=== PATIENT | female | born 1995 | race Caucasian/White ===

== ENCOUNTER 2018-04-28 12:53 | Emergency (ER) | payer BC ==
[2018-04-28 13:56] VITALS: BP 125/82
--- NOTE | 2018-04-28 14:01 | UC ---
Respiratory Complaint HPI - HPI Summary HPI Summary: 22 year old female presents with onset of mild nasal congestion approximately 2 weeks ago. States over past week has had increased congestion with sinus pressure then 2 days ago developed a non-productive cough. States has not taken anything for symptoms. Denies fever, chills, ear pain, sore throat, chest pain, or shortness of breath. - History of Current Complaint Chief Complaint: UCRespiratory Stated Complaint: COUGH Time Seen by Provider: 04/28/18 13:41 Hx Obtained From: Patient Hx Last Menstrual Period: 04/25/18 Pain Intensity: 2 - Allergies/Home Medications Allergies/Adverse Reactions: Allergies Allergy/AdvReac Type Severity Reaction Status Date / Time No Known Allergies Allergy Verified 04/28/18 13:32 Home Medications: Home Medications Control 1 tab PO DAILY 04/28/18 [History Confirmed 04/28/18] Dm/PE/Acetaminophen/Doxylamine [Vicks Nyquil Severe Cold-Flu] 1 each PO ONCE PRN 04/28/18 [History Confirmed 04/28/18] PMH/Surg Hx/FS Hx/Imm Hx Previously Healthy: Yes - Denies significant PMH - Surgical History Surgical History: Yes Surgery Procedure, Year, and Place: T&A - Family History Known Family History: Positive: Non-Contributory - Social History Occupation: Employed Full-time Lives: With Family Alcohol Use: Weekly Substance Use Type: None Smoking Status (MU): Never Smoked Tobacco Review of Systems All Other Systems Reviewed And Are Negative: Yes Constitutional: Negative: Fever, Chills Skin: Negative: Rash Eyes: Negative: Drainage, Eye Redness ENT: Positive: Nasal Discharge, Sinus Congestion, Sinus Pain/Tenderness. Negative: Sore Throat, Ear Ache Respiratory: Positive: Cough. Negative: Shortness Of Breath Cardiovascular: Negative: Palpitations, Chest Pain Gastrointestinal: Negative: Abdominal Pain, Vomiting, Diarrhea, Nausea Genitourinary: Positive: Negative Musculoskeletal: Positive: Negative Neurological: Positive: Negative Is Patient Immunocompromised?: No Physical Exam - Summary Physical Exam Summary: GENERAL APPEARANCE: Well developed, well nourished, alert and cooperative, and appears to be in no acute distress. EYES: Conjunctiva clear. No drainage. Vision is grossly intact. EARS: External auditory canals and tympanic membranes clear, hearing grossly intact. NOSE: Moderate nasal congestion with mucosal erythema and edema. THROAT: Mild pharyngeal erythema with post-nasal drip. Surgically absent tonsils. Uvula midline. Oral cavity normal. Teeth and gingiva in good general condition. NECK: Neck supple, non-tender without lymphadenopathy. CARDIAC: Normal S1 and S2. No S3, S4 or murmurs. Rhythm is regular. There is no peripheral edema, cyanosis or pallor. Extremities are warm and well perfused. Capillary refill is less than 2 seconds. Peripheral pulses intact. LUNGS: Clear to auscultation without rales, rhonchi, wheezing or diminished breath sounds. No cough observed. ABDOMEN: Positive bowel sounds. Soft, nondistended, nontender. No guarding or rebound. No masses or hepatosplenomegally. MUSKULOSKELETAL: ROM intact to all extremities. No joint erythema or tenderness. Normal muscular development. Normal gait. SKIN: Skin normal color, texture and turgor with no lesions or eruptions. Triage Information Reviewed: Yes Vital Signs: Initial Vital Signs Temp 99.2 F 04/28/18 13:26 Pulse 99 04/28/18 13:26 Resp 18 04/28/18 13:26 BP 125/82 04/28/18 13:26 Pulse Ox 100 04/28/18 13:26 Vital Signs Reviewed: Yes Respiratory Course/Dx - Course Course Of Treatment: 22 year old female presents with onset of mild nasal congestion approximately 2 weeks ago. States over past week has had increased congestion with sinus pressure then 2 days ago developed a non-productive cough. States has not taken anything for symptoms. Denies fever, chills, ear pain, sore throat, chest pain, or shortness of breath. Afebrile. VSS. Exam reveals a young adult female in no acute distress with moderate nasal congestion with mucosal erythema and edema, mild pharyngeal erythema with post-nasal drip, and otherwise unremarkable exam. Recommending symptomatic treatment for a viral URI. She is to follow up with her PCP in 7 days if no improvement. Anticipatory guidance and warning symptoms reviewed with patient. Verbalizes understanding and agrees with POC. - Differential Dx/Diagnosis Differential Diagnosis/HQI/PQRI: Bronchitis, Lower Resp Infection, Sinusitis Provider Diagnosis: URI with cough and congestion Discharge - Sign-Out/Discharge Documenting (check all that apply): Patient Departure All imaging exams completed and their final reports reviewed: No Studies - Discharge Plan Condition: Stable Disposition: HOME Prescriptions: Benzonatate CAP* [Tessalon 100 MG CAP*] 100 mg PO TID PRN #30 cap PRN Reason: Cough Fluticasone NASAL SPRAY 50MCG* [Flonase NASAL SPRAY 50MCG*] 2 spray BOTH NARES DAILY #1 btl Patient Education Materials: Upper Respiratory Infection (ED) Referrals: Bassem Calderon MD [Primary Care Provider] - 7 Days (Follow up if no improvment in symptoms.) Additional Instructions: Your history and exam are consistent with a viral upper respiratory infection. Viral infections do not respond to antibiotics and are limited to the treatment of symptoms. Drink plenty of fluids. Use a saline rinse kit such as Neti Pot or NeilMed at least twice a day to help thin secretions and promote drainage of the sinuses. Use fluticasone (Flonase) nasal spray 2 sprays each nostril once daily. Use over the counter Sudafed according to direction for the nasal congestion. Take over the counter acetaminophen (Tylenol) or ibuprofen (Advil, Motrin) according to directions as needed for pain or fever. Follow up with your primary care provider in 7 days if symptoms persist. Seek immediate medical attention in the emergency room if you have fever greater than 100.5 F despite taking acetaminophen or ibuprofen, have chest pain , difficulty breathing, are unable to swallow, or have any worsening of symptoms. - Billing Disposition and Condition Condition: STABLE Disposition: Home
== END 2018-04-28 14:14 | disposition home or self-care (01) ==
LOC: UCEAST 12:53
DX: J06.9 Acute upper respiratory infection, unspecified (principal); R05 Cough; R09.81 Nasal congestion
CPT/HCPCS: 99202; G0463

== ENCOUNTER 2018-08-05 18:40 | Emergency (ER) | payer BC ==
[2018-08-05 19:11] VITALS: BP 122/66
--- NOTE | 2018-08-05 19:17 | UC ---
Respiratory Complaint HPI - HPI Summary HPI Summary: 23 yo female with post nasal drip/congestion and cough for one week now with laryngitis mild sore throat no fever - History of Current Complaint Chief Complaint: UCGeneralIllness Stated Complaint: SORE THROAT/CONGESTION/COUGH Time Seen by Provider: 08/05/18 19:08 Hx Obtained From: Patient Hx Last Menstrual Period: 07/15/18 Onset/Duration: Gradual Onset, Lasting Days Timing: Constant Severity Initially: Mild Severity Currently: Moderate Pain Intensity: 0 Pain Scale Used: 0-10 Numeric Character: Cough: Nonproductive Aggravating Factors: Nothing Alleviating Factors: Nothing Associated Signs And Symptoms: Positive: Nasal Congestion, Hoarseness. Negative : Dyspnea, Fever, Chills, Pleuritic Chest Pain, Wheezing, Hemoptysis, Dizziness , Calf Pain, Calf Swelling, Edema, URI, Sinus Discomfort - Allergies/Home Medications Allergies/Adverse Reactions: Allergies Allergy/AdvReac Type Severity Reaction Status Date / Time No Known Allergies Allergy Verified 08/05/18 19:11 PMH/Surg Hx/FS Hx/Imm Hx Previously Healthy: Yes - Surgical History Surgical History: Yes Surgery Procedure, Year, and Place: T&A - Family History Known Family History: Positive: Hypertension, Non-Contributory - Social History Alcohol Use: Weekly Substance Use Type: None Smoking Status (MU): Never Smoked Tobacco Review of Systems All Other Systems Reviewed And Are Negative: Yes Constitutional: Positive: Negative Skin: Positive: Negative Eyes: Positive: Negative ENT: Positive: Sore Throat, Nasal Discharge Respiratory: Positive: Cough Cardiovascular: Positive: Negative Gastrointestinal: Positive: Vomiting - due to gagging on phelgm Genitourinary: Positive: Negative Motor: Positive: Negative Neurovascular: Positive: Negative Musculoskeletal: Positive: Negative Neurological: Positive: Negative Psychological: Positive: Negative Physical Exam Triage Information Reviewed: Yes Appearance: Well-Appearing, No Pain Distress, Well-Nourished Vital Signs: Initial Vital Signs Temp 98.6 F 08/05/18 19:07 Pulse 106 08/05/18 19:07 Resp 16 08/05/18 19:07 BP 122/66 08/05/18 19:07 Pulse Ox 100 08/05/18 19:07 Vital Signs Reviewed: Yes Eyes: Positive: Conjunctiva Clear ENT: Positive: Hearing grossly normal, Pharynx normal, Nasal congestion, Hoarse voice, Uvula midline. Negative: Nasal drainage, Tonsillar swelling, Tonsillar exudate, Muffled voice, Dental tenderness, Sinus tenderness Dental Exam: Normal Neck: Positive: Supple, Nontender, No Lymphadenopathy Respiratory: Positive: Lungs clear, Normal breath sounds, No respiratory distress Cardiovascular: Positive: RRR, No Murmur Musculoskeletal: Positive: No Edema Neurological: Positive: Alert Psychological Exam: Normal Skin Exam: Normal Respiratory Course/Dx - Differential Dx/Diagnosis Provider Diagnosis: Laryngitis, Post-nasal drip Discharge - Sign-Out/Discharge Documenting (check all that apply): Patient Departure All imaging exams completed and their final reports reviewed: No Studies - Discharge Plan Condition: Stable Disposition: HOME Prescriptions: Fluticasone NASAL SPRAY 50MCG* [Flonase NASAL SPRAY 50MCG*] 2 spray BOTH NARES BID #1 btl predniSONE [Deltasone 20 MG TAB] 40 mg PO DAILY #8 tab Patient Education Materials: Laryngitis (ED) Referrals: Enoch Mishra MD [Medical Doctor] - Jensen Wan MD [Medical Doctor] - Additional Instructions: I suggest you follow up with an credit processor - Billing Disposition and Condition Condition: STABLE Disposition: Home
[2018-08-05] MEDS ORDERED: predniSONE TAB* 20 MG PO ONE (19:26)
== END 2018-08-05 19:40 | disposition home or self-care (01) ==
LOC: UCCORT 18:40
DX: J04.0 Acute laryngitis (principal); R09.82 Postnasal drip
CPT/HCPCS: 99212; G0463; J7512